=== PATIENT | female | born 1995 | race African-American/Black ===

== ENCOUNTER 2023-06-02 20:27 | Emergency (ER) | payer SELFPAY ==
[2023-06-02] MEDS ORDERED: KETOROLAC 30 MG/ML INJ ONE (21:10)
[2023-06-02 21:20] LABS: Absolute Basophils 0.1 K/uL (0-0.5); Absolute Eosinophils 0.2 K/uL (0-0.5); Absolute Lymphocytes (CBC) 2.9 K/uL (0.7-4.9); Absolute Monocytes 0.8 K/uL (0.1-1.3); Absolute Neutrophil 5.3 K/uL (1.8-8.0); Basophils % 0.6 % (0-1.3); Eosinophils % 1.8 % (0-4.4); Hematocrit 36.3 % (36.0-45.0); Hemoglobin 12.4 g/dL (12.0-15.0); Lymphocytes % 31.3 % (15.3-44.8); MCH 30.6 pg (27.0-35.0); MCHC 34.1 g/dL (32.0-36.0); MCV 89.8 fL (80-100); MPV 7.7 fL (7.6-11.3); Monocytes % 8.4 % (3.3-12.3); Neutrophils % 57.9 % (41.7-73.7); Nucleated Red Blood Cells % 0.1 % (0-0); Platelets 313 thou/uL (152-406); RBC Red Blood Cell Count 4.05 M/uL (3.86-4.86); Red Cell Distribution Width 13.7 % (12.1-15.2)
--- NOTE | 2023-06-02 21:49 | RAD REPORT ---
EXAM DESCRIPTION: RAD - Chest Single View - 06/02/2023 9:34 pm CLINICAL HISTORY: CHEST PAIN COMPARISON: No comparisons FINDINGS: Lines: None. Lungs: No evidence of edema or pneumonia. Pleural: No significant pleural effusions or pneumothorax. Cardiac: The heart size is within normal limits. Mediastinum: Within normal limits. Bones: No acute fractures. Other: None IMPRESSION: No acute cardiopulmonary disease.
[2023-06-02 21:52] LABS: ALT/SGPT 26 U/L (13-56); AST/SGOT 14 U/L (15-37); Albumin/Globulin Ratio 1.1 (1.1-1.8); Alkaline Phosphatase 52 U/L (45-117); Anion Gap 8.5 mEq/L (5.0-15.0); BUN Blood Urea Nitrogen 10 mg/dL (7-18); Bicarbonate 25 mEq/L (21-32); Bilirubin Direct 0.1 mg/dL (0-0.2); Bilirubin Indirect, Calculated 0.4 mg/dL (0.2-0.8); Bilirubin Total 0.5 mg/dL (0.2-1.0); Globulin 3.5 g/dL (2.3-3.5); Glomerular Filtration Rate 94 ml/min (=/>90); Glucose Level 83 mg/dL (74-106); Magnesium 1.9 mg/dL (1.6-2.4); Potassium 3.5 mEq/L (3.5-5.1); Protein, Total 7.5 g/dL (6.4-8.2); Sodium Level 138 mEq/L (136-145)
[2023-06-02 21:53] LABS: Troponin High Sensitivity < 3.0 pg/mL (<58.9)
--- NOTE | 2023-06-02 22:18 | ER ---
Nurse's Notes [facility] Name: Josefa Meredith Age: 27 yrs Sex: Female : 1995 Arrival Date: 06/02/2023 Time: 20:27 Bed 6 Private MD: Diagnosis: Chest pain, unspecified Presentation: 06/01 20:31 Chief complaint: Patient states: I have a chest pain that radiates to my left arm since ha1 this morning. 20:31 Coronavirus screen: Vaccine status: Patient reports being unvaccinated. Ebola Screen: ha1 No symptoms or risks identified at this time. Initial Sepsis Screen: Does the patient meet any 2 criteria? No. Patient's initial sepsis screen is negative. Does the patient have a suspected source of infection? No. Patient's initial sepsis screen is negative. Risk Assessment: Do you want to hurt yourself or someone else? Patient reports no desire to harm self or others. Onset of symptoms was June 02, 2023. 20:31 Method Of Arrival: Ambulatory ha1 20:31 Acuity: GWYN 3 ha1 Triage Assessment: 20:31 General: Appears comfortable, Behavior is calm, cooperative. Pain: Complains of pain in ha1 chest Pain radiates to left arm Pain currently is 6 out of 10 on a pain scale. Neuro: Level of Consciousness is awake, alert, obeys commands, Oriented to person, place, time, situation. Cardiovascular: Patient's skin is warm and dry. 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 - Infectious Disease History:: Denies. - Social history:: Smoking status: Patient reports the use of cigarette tobacco products, denies chronic smoking, but will smoke occasionally. - Family history:: not pertinent. Screenin:00 [facility] ED Fall Risk Assessment (Adult) History of falling in the last 3 months, bm8 including since admission No falls in past 3 months (0 pts) Confusion or Disorientation No (0 pts) Intoxicated or Sedated No (0 pts) Impaired Gait No (0 pts) Mobility Assist Device Used No (0 pt) Altered Elimination No (0 pt) Score/Fall Risk Level 0 - 2 = Low Risk Oriented to surroundings, Maintained a safe environment, Educated pt \T\ family on fall prevention, incl call for assistance when getting out of bed. Abuse screen: Denies threats or abuse. Nutritional screening: No deficits noted. Tuberculosis screening: No symptoms or risk factors identified. Assessment: 21:00 Also complains of shortness of breath. Reassessment: Patient appears in no apparent bm8 distress at this time. Patient and/or family updated on plan of care and expected duration. Pain level reassessed. Patient is alert, oriented x 3, equal unlabored respirations, skin warm/dry/pink. General: Appears in no apparent distress. comfortable, Behavior is calm, cooperative, appropriate for age. Pain: Complains of pain in left breast Pain radiates to left arm Pain currently is 6 out of 10 on a pain scale. Quality of pain is described as pressure, Pain began since 0800 this morning. Neuro: No deficits noted. Level of Consciousness is awake, alert, obeys commands, Oriented to person, place, time, situation, Human Resources Recruiter are equal bilaterally Moves all extremities. Full function Gait is steady, Speech is normal. Cardiovascular: Reports chest pain, shortness of breath, since 0800 Heart tones S1 S2 present Capillary refill < 3 seconds Patient's skin is warm and dry. Respiratory: Airway is patent Respiratory effort is even, unlabored, Respiratory pattern is regular, Breath sounds are clear. GI: No deficits noted. No signs and/or symptoms were reported involving the gastrointestinal system. : No deficits noted. No signs and/or symptoms were reported regarding the genitourinary system. EENT: No deficits noted. No signs and/or symptoms were reported regarding the EENT system. Derm: No deficits noted. No signs and/or symptoms reported regarding the dermatologic system. Musculoskeletal: No deficits noted. No signs and/or symptoms reported regarding the musculoskeletal system. 22:15 Reassessment: Patient appears in no apparent distress at this time. Patient and/or bm8 family updated on plan of care and expected duration. Pain level reassessed. Patient is alert, oriented x 3, equal unlabored respirations, skin warm/dry/pink. Patient denies pain at this time. Patient states feeling better. Patient states symptoms have improved. General: Appears in no apparent distress. comfortable, Behavior is calm, cooperative, appropriate for age. Pain: Denies pain. Neuro: No deficits noted. Cardiovascular: Denies chest pain, lightheadedness, shortness of breath, Heart tones S1 S2 Capillary refill < 3 seconds Patient's skin is warm and dry. Respiratory: No deficits noted. Airway is patent Respiratory effort is even, unlabored, Respiratory pattern is regular. GI: No deficits noted. No signs and/or symptoms were reported involving the gastrointestinal system. : No deficits noted. No signs and/or symptoms were reported regarding the genitourinary system. EENT: No deficits noted. No signs and/or symptoms were reported regarding the EENT system. Derm: No deficits noted. No signs and/or symptoms reported regarding the dermatologic system. Musculoskeletal: No deficits noted. No signs and/or symptoms reported regarding the musculoskeletal system. Vital Signs: 20:31 BP 121 / 85; Pulse 59; Resp 17 S; Temp 98.1; Pulse Ox 100% on R/A; Weight 58.97 kg; ha1 21:00 BP 135 / 96; Pulse 79; Resp 15; Temp 98.1; Pulse Ox 100% on R/A; Pain 6/10; bm8 21:30 BP 118 / 81; Pulse 60; Resp 14; Pulse Ox 100% on R/A; cm10 22:00 BP 114 / 72; Pulse 61; Resp 14; Pulse Ox 100% on R/A; cm10 21:00 Pain Scale: Adult bm8 Vitals: 21:00 Cardiac Rhythm Assessment Regular Sinus rhythm. bm8 [place] Coma Score: 21:00 Eye Response: spontaneous(4). Motor Response: obeys commands(6). Verbal Response: bm8 oriented(5). Total: 15. ED Course: 20:30 Patient arrived in ED. [email or web address] 20:42 Triage completed. ha1 20:46 Bassem Fan, RN is Primary Nurse. bm8 20:53 Pedro Luis Wakefield MD is Attending Physician. rt 21:00 Patient has correct armband on for positive identification. Placed in gown. Bed in low bm8 position. Call light in reach. Side rails up X 1. supervisor assembly on. Pulse ox on. NIBP on. Door closed. Noise minimized. Visitors limited. Lights dimmed. Verbal reassurance given. 21:00 Arm band placed on right wrist. bm8 21:12 Basic Metabolic Panel Sent. km8 21:12 CBC with Diff Sent. km8 21:12 LFT's Sent. km8 21:12 Magnesium Sent. km8 21:12 Troponin HS Sent. 8 21:12 Initial lab(s) drawn, by me, sent to lab. Inserted saline lock: 20 gauge in right [facility] antecubital area, using aseptic technique. Blood collected. 21:35 XRAY Chest (1 view) In Process Unspecified. EDMS 22:16 Provided Education on: post er care for home. bm8 22:16 No provider procedures requiring assistance completed. IV discontinued, intact, bm8 bleeding controlled, No redness/swelling at site. Pressure dressing applied. O2 via n/a. 22:19 EKG completed in triage. Results shown to MD. bm8 Administered Medications: 21:14 Drug: Ketorolac IVP 15 mg IVP once Route: IVP; Site: right antecubital; [facility] 22:11 Follow up: Response: No adverse reaction bm8 Medication: 21:00 VIS not applicable for this client. bm8 Outcome: 22:16 Discharged to home ambulatory, bm8 22:16 Condition: stable 22:16 Discharge instructions given to patient, Instructed on discharge instructions, follow up and referral plans. Demonstrated understanding of instructions, follow-up care, 22:17 Discharge ordered by MD. rt 22:22 Patient left the ED. bm8 Signatures: Dispatcher [employer] EDDiana Cunningham [email or web address] Pina Glover, RN RN Pedro Luis Cortes MD MD rt Marjorie Chapman, RN RN cm10 Janelle Aguilera, RN RN km8 Bassem Fan, RN RN bm8
--- NOTE | 2023-06-02 22:18 | EDPHYS ---
Physician Documentation [facility] Name: Josefa Meredith Age: 27 yrs Sex: Female : 1995 Arrival Date: 06/02/2023 Time: 20:27 Bed 6 Private MD: ED Physician Pedro Luis Wakefield HPI: 06/01 21:32 This 27 yrs old Black Female presents to ER via Ambulatory with complaints of Chest rt Pain. 21:32 Patient presents to the ED with chest pain starting this morning. It waxes and wanes in rt intensity does not go completely. It is left-sided moved to the left arm. Denies other acute complaints this time, symptoms are moderate in severity, no other aggravating alleviating factors.. 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 - Infectious Disease History:: Denies. - Social history:: Smoking status: Patient reports the use of cigarette tobacco products, denies chronic smoking, but will smoke occasionally. - Family history:: not pertinent. ROS: 21:32 Constitutional: Negative for fever, chills, and weight loss, Neck: Negative for injury, rt pain, and swelling, Respiratory: Negative for shortness of breath, cough, wheezing, and pleuritic chest pain, Abdomen/GI: Negative for abdominal pain, nausea, vomiting, diarrhea, and constipation, MS/Extremity: Negative for injury and deformity, Skin: Negative for injury, rash, and discoloration, Neuro: Negative for headache, weakness, numbness, tingling, and seizure, 21:32 Cardiovascular: Positive for chest pain, Negative for edema, Exam: 21:32 Constitutional: This is a well developed, well nourished patient who is awake, alert, rt and in no acute distress. Head/Face: Normocephalic, atraumatic. Chest/axilla: Normal chest wall appearance and motion. Nontender with no deformity. No lesions are appreciated. Cardiovascular: Regular rate and rhythm with a normal S1 and S2. No gallops, murmurs, or rubs. Normal PMI, no JVD. No pulse deficits. Respiratory: Lungs have equal breath sounds bilaterally, clear to auscultation and percussion. No rales, rhonchi or wheezes noted. No increased work of breathing, no retractions or nasal flaring. Abdomen/GI: Soft, non-tender, with normal bowel sounds. No distension or tympany. No guarding or rebound. No evidence of tenderness throughout. Skin: Warm, dry with normal turgor. Normal color with no rashes, no lesions, and no evidence of cellulitis. MS/ Extremity: Pulses equal, no cyanosis. Neurovascular intact. Full, normal range of motion. 21:32 ECG was reviewed by the Attending Physician. Vital Signs: 20:31 BP 121 / 85; Pulse 59; Resp 17 S; Temp 98.1; Pulse Ox 100% on R/A; Weight 58.97 kg; ha1 21:00 BP 135 / 96; Pulse 79; Resp 15; Temp 98.1; Pulse Ox 100% on R/A; Pain 6/10; bm8 21:30 BP 118 / 81; Pulse 60; Resp 14; Pulse Ox 100% on R/A; cm10 22:00 BP 114 / 72; Pulse 61; Resp 14; Pulse Ox 100% on R/A; cm10 21:00 Pain Scale: Adult bm8 [place] Coma Score: 21:00 Eye Response: spontaneous(4). Motor Response: obeys commands(6). Verbal Response: bm8 oriented(5). Total: 15. MDM: 20:58 Patient medically screened. rt 06/02 01:16 Differential diagnosis: ACS, chest wall pain, dysrhythmia, pneumonia, pneumothorax. rt HEART Score: History: Slightly Suspicious (0), ECG: Normal (0), Age: < or = 45 years (0), Risk Factors: No Risk Factors Known (0), Troponin: < or = 1 x Normal Limit (0), Total Score = 0. Data reviewed: vital signs, nurses notes, lab test result(s), EKG, radiologic studies. I considered the following discharge prescriptions or medication management in the emergency department Medications were administered in the Emergency Department. See MAR. Independent interpretation of the following test(s) in the Emergency Department X-Ray: My interpretation is No pneumonia seen on my interpretation of x-ray images. Test considered but Not performed: CT: Low suspicion for PE, is PE RC negative, does not require CT angiogram to rule out pulmonary embolus. Counseling: I had a detailed discussion with the patient and/or guardian regarding the historical points, exam findings, and any diagnostic results supporting the discharge/admit diagnosis, lab results, radiology results, the need for outpatient follow up, to return to the emergency department if symptoms worsen or persist or if there are any questions or concerns that arise at home. Response to treatment: the patient's symptoms have markedly improved after treatment. 06/01 21:03 Order name: Basic Metabolic Panel; Complete Time: 21:55 rt 06/01 21:03 Order name: CBC with Diff; Complete Time: 21:55 rt 06/01 21:03 Order name: LFT's; Complete Time: 21:55 rt 06/01 21:03 Order name: Magnesium; Complete Time: 21:55 rt 06/01 21:03 Order name: Troponin HS; Complete Time: 21:55 rt 06/01 21:03 Order name: XRAY Chest (1 view); Complete Time: 21:55 rt 06/01 21:03 Order name: EKG; Complete Time: 21:03 rt 06/01 20:44 Order name: EKG - Nurse/Tech; Complete Time: 20:44 ha1 06/01 21:03 Order name: Cardiac monitoring; Complete Time: 21:12 rt 06/01 21:03 Order name: IV Saline Lock; Complete Time: 21:12 rt 06/01 21:03 Order name: Labs collected and sent; Complete Time: 21:12 rt 06/01 21:03 Order name: O2 Per Protocol; Complete Time: 21:12 rt 06/01 21:03 Order name: O2 Sat Monitoring; Complete Time: 21:12 rt EC/05 21:32 Rate is 65 beats/min. Rhythm is regular, Normal Sinus Rhythm with No ectopy. QRS [place] rt is Normal. [place] interval is normal. QRS interval is normal. QT interval is normal. No Q waves. T waves are Normal. No ST changes noted. Interpreted by me. Administered Medications: 21:14 Drug: Ketorolac IVP 15 mg IVP once Route: IVP; Site: right antecubital; km8 22:11 Follow up: Response: No adverse reaction bm8 Disposition Summary: 06/02/23 22:17 Discharge Ordered Notes: Location: Home rt Problem: new rt Symptoms: have improved rt Condition: Stable rt Diagnosis - Chest pain, unspecified rt Followup: rt - With: Private Physician - When: 2 - 3 days - Reason: Discharge Instructions: - Discharge Summary Sheet rt - Nonspecific Chest Pain, Adult rt Forms: - Medication Reconciliation Form rt - Thank You Letter rt - Antibiotic Education rt - Prescription Opioid Use rt - Patient Portal Instructions rt - Leadership Thank You Letter rt Signatures: Dispatcher [employer] Pina Gomez RN RN ha1 Pedro Luis Wakefield MD MD rt Janelle Aguilera RN RN km8 Bassem Fan RN bm8 Corrections: (The following items were deleted from the chart) 21:04 21:03 EKG - Nurse/Tech ordered. rt km8
[2023-06-03 03:47] VITALS: BP 114/72; TEMP 98.1; O2SAT 100
--- NOTE | 2023-06-05 12:49 | EKG ---
Test Date: 2023-06-02 Test Time: 20:39:05 County Bailiff: FLORA MEASUREMENT RESULTS: Intervals: Rate: 65 VT: 132 QRSD: 86 QT: 410 QTc: 426 [place]: P: 75 VT: 132 QRS: 78 T: 67 INTERPRETIVE STATEMENTS: Normal sinus rhythm with sinus arrhythmia Normal ECG Compared to ECG 01/20/2011 03:23:30 Sinus bradycardia no longer present Electronically Signed On 06-05-23 12:43:04 CDT by Marcus Gonzalez
== END 2023-06-02 22:22 | disposition home or self-care (01) ==
LOC: ER 20:27
DX: R07.9 Chest pain, unspecified (principal)
CPT/HCPCS: 36415; 71045; 80048; 80076; 83735; 84484; 85025; 93005; 96374; 99285